=== PATIENT | male | born 1990 | race Caucasian/White ===

== ENCOUNTER 2020-03-24 14:44 | Emergency (ER) | payer OTHER ==
[2020-03-24 14:50] VITALS: BP 131/73
[2020-03-24] MEDS ORDERED: LIDOCAINE-MPF 2% 5 ML VIAL SUBQ STA (14:56)
--- NOTE | 2020-03-24 15:17 | ED Physician Documentation ---
History of Present Illness - Stated complaint Stated Complaint: RT WRIST LAC - Chief complaint Chief Complaint: Laceration - History obtained from History obtained from: Patient (29-year-old male presents to the ER today with chief complaint of a laceration to his right wrist, occurring just prior to arrival. Patient is in the [employer] And was at work as a packaging mechanic, when he turned a wrench slipped and his hand caught a sharp metal object. Bleeding was controlled by the patient prior to arrival. Patient states his last tetanus shot was 2 to 3 years ago. He has no other concerns today.) Review of Systems Ten Systems: 10 systems reviewed and negative Skin: reports: Laceration (s) (Right wrist) PD PAST MEDICAL HISTORY - Present Medications Home Medications: Ambulatory Orders Medication Instructions Recorded Confirmed No Known Home Medications 03/24/20 03/24/20 - Allergies Allergies/Adverse Reactions: Allergies Allergy/AdvReac Type Severity Reaction Status Date / Time No Known Drug Allergies Allergy Verified 03/24/20 14:50 PD ED PE NORMAL - General General: Alert and oriented X 3, No acute distress, Well developed/nourished - HEENT HEENT: Atraumatic - Respiratory Respiratory: No respiratory distress - Derm Derm: Warm and dry, Other (1.25 cm , linear, clean laceration to the medial anterior surface of the right wrist. Circulation, muscle skeletal, sensation intact.) Results - Vitals Vitals: Vital Signs - 24 hr 03/24/20 14:48 Temperature 36.6 C Heart Rate 73 Respiratory 17 Rate Blood Pressure 131/73 H O2 Saturation 99 Oxygen O2 Source Room air Procedures - Laceration (location) Hand right Medial Length in cm: 1 Wound type: Linear, Clean Neurovascular status: Sensory intact, Motor intact, Vascular intact Tendon involvement: Tendon intact Anesthesia: Lidocaine 2% Wound Preparation: Chlorhexadine Skin layer closure: Prolene, Size #-0 - enter number (5), Sutures - enter # (3) Other: Patient tolerated well, No complications, Neurovascular intact Complexity: Simple PD MEDICAL DECISION MAKING - ED course Complexity details: d/w patient (Suture laceration care at home. Patient to follow-up with his primary care provider in 10 to 14 days have 3 sutures removed. He was instructed on signs and symptoms to watch for increasing infection, and advised to follow-up with his primary care physician return the ER for further evaluation should this occur.) Departure - Departure Disposition: 01 Home, Self Care Clinical Impression: Laceration Condition: Good Instructions: ED Laceration Hand, Sutr Care Comments: Keep the sutures clean and covered while working. watch for signs of infection, increasing swelling, redness going Beyond 1 cm the edges of the laceration. Sutures are to be removed in 10-14 days, you can have this done by your PCP. keep a small amount of antibiotic ointment and a bandaid on your sutures while working to help them stay loose. You can take Tylenol or Ibuprofen for pain.
== END 2020-03-24 15:30 | disposition home or self-care (01) ==
LOC: ED 14:44
DX: S61.511A Laceration without foreign body of right wrist, initial encounter (principal); W26.8XXA Contact with other sharp object(s), not elsewhere classified, initial encounter; Y93.89 Activity, other specified; Y92.139 Unspecified place military base as the place of occurrence of the external cause; Y99.1 Military activity
CPT/HCPCS: 12001; 99282; 99283